=== PATIENT | female | born 1970 | race Caucasian/White ===

== ENCOUNTER → 2024-01-09 | Outpatient (CLI) | payer BC ==
--- NOTE | 2024-01-09 12:38 | CA ---
Stress Echo Report Katarina Cast Age: 53 Gender: F : 1970 Exam Date: 01/09/2024 10:37 Exam Location: [facility] Ht (in): 67 Wt (lb): 241 Ordering Physician: Karolyn Murphy DO Referring Physician: KAROLYN MURPHY,, Priming Powder Premix Blender: Caroline Casiano RCS Technologist Procedure CPT: Indication: R94.31 abn ekg ICD-9 Codes: Rhythm: Patient History: Cardiac Medications: SEE LIST Medications in past 24 hours: Contrast: N/A Stress Results Protocol: Sami Total dose(mL): NA Exercise Duration (min:sec): 5:[address] Depression (mm): 0 Angina Score: 0 Peña Score: 5.02 METS: 7.0 Resting HR: 115 Resting BP: 129 / 69 Peak HR: 165 Peak BP: 161 / 61 Max Predicted HR: 167 99 % Max Predicted HR Target HR: 142 Double Product: 39013 Stress Summary: The patient's target heart rate was achieved BP Response: Normal Reason for Termination: Reached target heart rate or work-load Cardiac Symptoms: NO SYMPTOMS ECG Analysis Resting ECG: Normal sinus rhythm, normal ECG Stress ECG: No abnormal ST/T wave changes with exercise Arrhythmia: None Echo Analysis Resting Echo: Normal resting echocardiogram. Peak Echo Analysis: Normal treadmill stress echocardiogram. MEASUREMENTS (Male/Female) Normal Values CONCLUSIONS Patient falls into low-risk group (DTS >= +5). This associates the patient with an annual CV mortality <= 0.5%. 1. Decrease exercise tolerance 2. Normal electrocardiographic response to exercise 3. Normal stress echocardiogram with no evidence of stress induced ischemia Dr. Michelle Watson MD (Electronically Signed) Final Date: 09 January 2024 12:37
== END | disposition home or self-care (01) ==
LOC: RADNMMAIN 09:50
PROVIDERS: ATTEND Family Medicine
DX: R94.31 Abnormal electrocardiogram [ECG] [EKG] (principal)
CPT/HCPCS: 93351

== ENCOUNTER → 2024-01-27 | Outpatient (CLI) | payer BC ==
--- NOTE | 2024-01-31 13:39 | MM ---
Reason for Exam: Screening (asymptomatic). Last mammogram was performed 2 year(s) and 1 month(s) ago. Patient History: Menarche at age 12. First Full-Term at age 31. Late child-bearing (after 30). Patient has history of breast feeding. Patient used Hormonal Contraceptives for 5 years. Last menstrual period: 08/05/2023 Risk Values: Natasha 5 year model risk: 1.5%. NCI Lifetime model risk: 11.6%. Prior Study Comparison: 01/01/2022 Bilateral Screening Mammogram, [facility] Thomas. Tissue Density: There are scattered areas of fibroglandular density. Findings: Analyzed By CAD. Right breast: There is no suspicious group of microcalcifications or new suspicious mass. Left breast: There is no suspicious group of microcalcifications or new suspicious mass. Overall Assessment: Negative, BI-RAD 1 Management: Screening Mammogram of both breasts in [address] [facility] will attempt to contact patient to return for supplemental views and ultrasound if indicated. Patient should continue monthly self-breast exams. A clinical breast exam by your physician is recommended on an annual basis. This exam should not preclude additional follow-up of suspicious palpable abnormalities. Note on Natasha scores and lifetime risk: 1. A Natasha score greater than 3% is considered moderate risk. If this is the case, consider specialist referral to assess eligibility for a risk reducing agent. 2. If overall lifetime risk for the development of breast cancer is 20% or higher, the patient may qualify for future screening with alternating mammogram and breast MRI. Electronically signed and approved by: Lauro Marshall DO
== END | disposition home or self-care (01) ==
LOC: RADMAMWWP 07:09
PROVIDERS: ATTEND Family Medicine
DX: Z12.31 Encounter for screening mammogram for malignant neoplasm of breast (principal)
CPT/HCPCS: 77063; 77067